=== PATIENT | male | born 1995 | race Caucasian/White ===

== ENCOUNTER 2016-08-03 13:54 | Emergency (ER) | payer OTHER, BC ==
[~2016-08-03] VITALS: Ht 188 cm; Wt 79.0 kg
[~2016-08-03 13:54] MED LIST: CARB200T14 PO; INVE3TAB OR
[2016-08-03 13:55] VITALS: BP 133/73; PULSE 116; RESP 20; TEMP 99; O2SAT 98
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
[2016-08-03] MEDS ORDERED: IBUPROFEN 800 MG TAB PO ONE (17:15)
[2016-08-03] MEDS ORDERED: IBUP800T23 PO (17:23)
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
== END 2016-08-03 18:20 | disposition home or self-care (01) ==
LOC: NED 13:54 → NEPB 13:54 → NED 15:50 → NEPB 18:20
DX: S50.11XA Contusion of right forearm, initial encounter (principal); V13.4XXA Pedal cycle driver injured in collision with car, pick-up truck or van in traffic accident, initial encounter; Y93.55 Activity, bike riding; Y92.410 Unspecified street and highway as the place of occurrence of the external cause
CPT/HCPCS: 73090; 99284

== ENCOUNTER 2017-05-15 17:48 | Emergency (ER) | payer OTHER ==
[~2017-05-15 17:48] MED LIST changes: +IBUP1TAB7 PO
[2017-05-15 18:44] VITALS: BP 127/70; PULSE 69; RESP 18; TEMP 98.7; O2SAT 98
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
[2017-05-15] MEDS ORDERED: DICL75TA PO (20:43)
[2017-05-15] MEDS ORDERED: NORC5TAB PO (20:43)
[2017-05-15] MEDS ORDERED: CYCL10TA PO (20:43)
[2017-05-15] MEDS ORDERED: ACETAMINOPHEN/HYDROcodone 325 MG/5 MG TAB PO ONE (20:45)
[2017-05-15] MEDS ORDERED: CYCLOBENZAPRINE HCL 10 MG TAB PO ONE (20:45)
[2017-05-15] MEDS ORDERED: NAPROXEN 500 MG TAB PO ONE (20:45)
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
== END 2017-05-15 21:02 | disposition home or self-care (01) ==
LOC: NEPK 17:48
DX: S33.5XXA Sprain of ligaments of lumbar spine, initial encounter (principal); S50.02XA Contusion of left elbow, initial encounter; M43.17 Spondylolisthesis, lumbosacral region; V13.4XXA Pedal cycle driver injured in collision with car, pick-up truck or van in traffic accident, initial encounter; Y93.55 Activity, bike riding; Y92.410 Unspecified street and highway as the place of occurrence of the external cause
CPT/HCPCS: 72100; 99284